=== PATIENT | female | born 1945 | race African-American/Black ===

== ENCOUNTER 2018-09-13 07:43 | Day surgery (SDC) | payer OTHER ==
[2018-09-12 13:18] VITALS: BMI 31.8
[2018-09-13] MEDS ORDERED: LIDOCAINE HCL/PF 2% SDV 5ML VIAL ONE (09:15)
[2018-09-13] MEDS ORDERED: PROPOFOL 20 ML ONE (09:16)
[2018-09-13 12:05] VITALS: TEMP 97.8
[2018-09-13 12:18] VITALS: BP 109/58; PULSE 61
== END 2018-09-13 10:05 | disposition home or self-care (01) ==
LOC: FASU-ENDO 07:43
PROVIDERS: ATTEND Internal Medicine Gastroenterology
PROC: 0DJD8ZZ Inspection of Lower Intestinal Tract, Via Natural or Artificial Opening Endoscopic (ICD-10-PCS; principal; 2018-09-13 08:57)
DX: Z12.11 Encounter for screening for malignant neoplasm of colon (principal); Z80.0 Family history of malignant neoplasm of digestive organs